=== PATIENT | male | born 1945 | race Caucasian/White ===

== ENCOUNTER 2017-12-01 13:04 | Observation (INO) | payer OTHER ==
--- NOTE | 2017-12-01 13:30 | EDPHY ---
H & P Time Seen by Provider: 12/01/17 13:29 HPI/ROS: CHIEF COMPLAINT: Dizziness and low blood pressure HISTORY OF PRESENT ILLNESS: Patient 1st had the symptoms 5 years ago with syncope and near syncope and had an echocardiogram then but none since. He was seen in cardiology clinic on Saturday and started on Midodrine and this is day 3. He is symptoms of lightheaded and dizziness or getting worse with blood pressure 66/49 yesterday, and then after walking the dog 58/41 and 69/47. He feels like symptoms are worse and he definitely worse with standing. Not associated with headache or chest pain or shortness of breath. Symptoms worsening over the past week. 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 REVIEW OF SYSTEMS: Eye: no change in vision ENT: no sore throat Cardiac: HPI Pulmonary: no cough or SOB Abdomen: no vomiting, diarrhea, abdominal pain Musculoskeletal: no back pain Skin: no rash Neuro: no headache Constitutional: no fever : no urinary symptoms A comprehensive 10 point review of systems is otherwise negative aside from elements mentioned in the history of present illness. PAST MEDICAL HISTORY: Appendectomy and testicular cancer Social history: Here with his of 20 years, denies alcohol or tobacco. General Appearance: Alert and conversant, cooperative. Eyes: No scleral icterus. ENT, Mouth: Normal mucous membranes. Respiratory: Normal respiratory effort, breath sounds equal, lungs are clear to auscultation. Cardiovascular: Regular rate and rhythm. 1 of 6 systolic murmur. Gastrointestinal: Abdomen is soft and non tender. Neurological: Alert, face symmetric, normal motor and sensory in extremities. Skin: Warm and dry, no rashes. Musculoskeletal: No peripheral edema. Psychiatric: Not agitated. Emergency Department course/MDM: EKG personally interpreted shows sinus rhythm with PVC and first-degree AV block , late anterior RS transition. Troponin negative. CBC and chemistry sent. Consultation with [facility]; discussed with Funmilayo at 1357, will see patient today in the hospital in consultation. 1400: Discussed Cardiology recommendation with patient and his . Admission to hospitalist service, cardiology consultation. Reason for admission is disabling symptoms with severe hypotension when he is standing or walking. Smoking Status: Never smoked Constitutional: Initial Vital Signs Temperature (C) 36.5 C 12/01/17 13:24 Heart Rate 67 12/01/17 13:24 Respiratory Rate 16 12/01/17 13:24 Blood Pressure 110/64 12/01/17 13:24 O2 Sat (%) 96 12/01/17 13:24 O2 Delivery Mode Room Air Allergies/Adverse Reactions: No Known Allergies Allergy (Verified 12/01/17 13:23) Home Medications: Medication Instructions Recorded Ondansetron Odt [Zofran Odt] 4 mg PO Q4PRN PRN #20 tab 05/20/14 Midodrine HCl 12/01/17 Medical Decision Making - Diagnostics EKG Interpretation: 12-lead EKG interpreted by me; official reading is in trace master. My interpretation is sinus rhythm rate 56 with PVC first-degree AV block and late anterior RS transition. Differential Diagnosis: Differential diagnosis considered for near syncope including but not limited to POTS, orthostatic hypotension, metabolic derangement, vasovagal syncope, arrhythmia, dehydration, and blood loss. Consult/Admit Bed Type: [facility] 1400 - Data Points Laboratory Results: Laboratory Results 12/01/17 13:32 12/01/17 13:32 12/01/17 12/01/17 12/01/17 13:35 13:32 13:32 WBC 5.18 10^3/uL 10^3/uL (3.80-9.50) RBC 4.09 10^6/uL L 10^6/uL (4.40-6.38) Hgb 13.4 g/dL L g/dL (13.7-17.5) Hct 40.3 % % (40.0-51.0) MCV 98.5 fL fL (81.5-99.8) MCH 32.8 pg pg (27.9-34.1) MCHC 33.3 g/dL g/dL (32.4-36.7) RDW 12.4 % % (11.5-15.2) Plt Count 181 10^3/uL 10^3/uL (150-400) MPV 11.0 fL fL (8.7-11.7) Neut % (Auto) 67.4 % % (39.3-74.2) Lymph % (Auto) 21.4 % % (15.0-45.0) [place] % (Auto) 8.1 % % (4.5-13.0) Eos % (Auto) 1.9 % % (0.6-7.6) Baso % (Auto) 1.0 % % (0.3-1.7) Nucleat RBC Rel Count 0.0 % % (0.0-0.2) Absolute Neuts (auto) 3.49 10^3/uL 10^3/uL (1.70-6.50) Absolute Lymphs (auto) 1.11 10^3/uL 10^3/uL (1.00-3.00) Absolute Monos (auto) 0.42 10^3/uL 10^3/uL (0.30-0.80) Absolute Eos (auto) 0.10 10^3/uL 10^3/uL (0.03-0.40) Absolute Basos (auto) 0.05 10^3/uL 10^3/uL (0.02-0.10) Absolute Nucleated RBC 0.00 10^3/uL 10^3/uL (0-0.01) Immature Gran % 0.2 % % (0.0-1.1) Immature Gran # 0.01 10^3/uL 10^3/uL (0.00-0.10) Sodium 135 mEq/L mEq/L (135-145) Potassium 4.6 mEq/L mEq/L (3.3-5.0) Chloride 100 mEq/L mEq/L (97-110) Carbon Dioxide 28 mEq/l mEq/l (22-31) Anion Gap 7 mEq/L L mEq/L (8-16) BUN 18 mg/dL mg/dL (7-23) Creatinine 0.9 mg/dL mg/dL (0.7-1.3) Estimated GFR > 60 Glucose 80 mg/dL mg/dL (70-100) Calcium 9.1 mg/dL mg/dL (8.5-10.4) POC Troponin I 0.00 ng/mL ng/mL (0.00-0.08) Medications Given: Discontinued Medications Sodium Chloride (Ns) 1,000 mls @ 0 mls/hr IV EDNOW ONE; Wide Open PRN Reason: Protocol Stop: 12/01/17 13:58 Last Admin: 12/01/17 14:00 Dose: 1,000 mls Point of Care Test Results: Chemistry 12/01/17 13:35 POC Troponin I 0.00 ng/mL ng/mL (0.00-0.08) Departure - Departure Disposition: [facility] Inpatient Acute Clinical Impression: Near syncope, Orthostatic hypotension Condition: Good
--- NOTE | 2017-12-01 13:38 | CPEKG ---
Heart Rate: 56 RR Interval: 1071 P-R Interval: 232 QRSD Interval: 90 QT Interval: 452 QTC Interval: 437 P [place]: 56 QRS [place]: -1 T Wave [place]: 44 EKG Severity - ABNORMAL ECG - EKG Impression: SINUS RHYTHM EKG Impression: VENTRICULAR PREMATURE COMPLEX EKG Impression: INTERPOLATED VENTRICULAR PREMATURE COMPLEX EKG Impression: FIRST DEGREE AV BLOCK EKG Impression: CONSIDER ANTEROSEPTAL INFARCT Electronically Signed By: Justin Larsen 01-Dec-2017 13:52:57
[2017-12-01 13:55] LABS: PLATELET COUNT 181 10^3/uL (150-400)
[2017-12-01] MEDS ORDERED: NS 1,000 ML IV ONE (13:57)
[2017-12-01] MEDS ORDERED: ACETAMINOPHEN 325 MG TAB PO PRN (14:55)
--- NOTE | 2017-12-01 15:41 | ASMTCMCOM ---
CM Note CM Note Notes: Pt presented to the Emergency Department with dizziness and low blood pressure. History includes testicular cancer. Pt admitted for further observation and treatment. Pt is and lives with his spouse. Discharge needs remain unclear at this time. CM will continue to follow. Current Discharge Plan: To be determined Date Signed: 12/01/2017 03:40 PM Electronically Signed By:Lissette Ramos RN
--- NOTE | 2017-12-01 15:47 | GHP ---
[f rep st] HISTORY AND PHYSICAL DATE OF ADMISSION: 12/01/2017 CHIEF COMPLAINT: Orthostatic hypotension. HISTORY OF PRESENT ILLNESS: Mr. Marcelino is a 72-year-old healthy man who comes in with lightheadednes s. He said he has had issues with lightheadedness and orthostasis for at least 5-6 years. Over the past 6-8 months, his symptoms have been progressive to a point where he gets lightheaded and nearly p asses out any time he walks his dogs, walks up stairs, if he stands too quickly. Immediately when he gets these symptoms he stops, he puts his head between his knees and he can feel blood rushing back into his head and feels better. He has fallen, most recently a week ago he fell off a bridge into a [place] while walking his dog. He was in the cold water and eventually revived enough to crawl out of the [place] and make it home, at which time his blood pressure per their cuff was 58 systolic. He jeaneth es any weight changes. No fevers or chills. No headache. No vision, hearing, speech issues. No co ugh. No palpitations. No abdominal complaints. No urinary symptoms. He does have chronic constipa tion. No lower extremity swelling. He has occasional joint pains for which he takes diclofenac. REVIEW OF SYSTEMS: A 10-point review of systems was done and is negative except as stated in the HPI . PAST MEDICAL HISTORY: Orthostatic hypotension and some mild arthritis. SOCIAL HISTORY: He works as a real estate section 8 property manager. He is . He denies tobacco, alco hol, or recreational drug use. FAMILY HISTORY: Mother from a spindle cell cancer. He does not know his father. CURRENT MEDICATIONS: He was started on Midodrine on Saturday. He has not noted any improvement in his symptoms since then, although he is able to have an erection easier. He takes an occasional diclofe nac for joint pains. ALLERGIES: No known drug allergies. PHYSICAL EXAM: VITAL SIGNS: He has been afebrile. Heart rate 50, blood pressure 177/98, 96% on j carlos m air. GENERAL: He is a very pleasant 72-year-old man. He is in no distress. He is alert and orie nted. HEENT: Pupils equal. Extraocular movements intact. Mucous membranes moist. Oropharynx kirsty r. Cranial nerves intact. NECK: Supple. No adenopathy. No carotid bruits. HEART: Regular, slig htly bradycardic. No murmur. LUNGS: Clear bilaterally without wheeze, rhonchi, or rales. SPINE: Nontender to palpation. ABDOMEN: Soft. No masses. Normal bowel sounds. EXTREMITIES: No clubbing , cyanosis, or edema. No lymphadenopathy noted. Pulses intact distally. PSYCH: He has a normal mo od and affect. NEUROLOGICAL: He moves all 4 extremities equally. LABORATORY DATA: CBC is normal except for mild anemia with a hemoglobin of 13.4. Electrolytes and r enal function are normal. Calcium 9.1. Troponin is negative. Electrocardiogram personally reviewed and interpreted shows sinus rhythm with a PVC, first-degree AV block, poor R-wave progression. ASSESSMENT AND PLAN: A 72-year-old man presents with orthostatic hypotension primarily after exertio n and occasionally with standing. This has been progressive for several years and accelerated in the last several months. He has not yet obtained a firm diagnosis. Etiologies could include primary au tonomic failure versus paraneoplastic syndrome versus cardiac cause. PLAN: Consult Cardiology to rule out cardiac cause of his hypotension. Will monitor him on telemetr y overnight. Check an echocardiogram. Consider exercise stress test. We will defer to Cardiology e valuation. Will also need to evaluate for other neurologic causes. Will hold his Midodrine for now. Place BETHANY hose. Do a cortisol stim test in the a.m. Check vitamin B12. Advised him to start slee ping with his head elevated. Treatment management of primary autonomic failure is generally symptoma tic, treating with Midodrine, Florinef, stockings and keeping your head elevated when sleeping. We w ill start medications tomorrow morning after I do the cortisol stim test, including Midodrine and Hang rinef, place BETHANY hose, and advised him to sleep with his head elevated to avoid hypertension. Certai nly followup post hospitalization would include, if no cause is found, would include evaluation with an autonomic neurology specialist, Dr. Deysi Ayala in [place]. Anemia. This is mild with a normal MCV. We will check vitamin B12 and iron levels. He is up to bruna e on his colonoscopy. Further evaluation can be done on the outpatient setting with followup. /[id number]/MODL
[2017-12-02] MEDS ORDERED: COSYNTROPIN 0.25 MG/2 ML SYRINGE IVP ONE (06:00)
[2017-12-02] MEDS: MIDODRINE HCL 5 MG TAB PO SCH ×2 (08:22→14:47)
[2017-12-02] MEDS ORDERED: MULTIVITAMINS 1 EACH TAB PO SCH (09:00)
[2017-12-02] MEDS ORDERED: FLUDROCORTISONE ACETATE 0.1 MG TAB PO SCH (09:00)
--- NOTE | 2017-12-02 12:17 | ECHO ---
[email or web address] [address] [address] Main: [phone] Fax: Transthoracic Echocardiogram Name: NISSA MARTINEZ MR#: [id number] Study Date: 12/02/2017 Study Time: 07:56 AM Date of : 1945 Age: 72 year(s) Height: 182.9 cm (72 in.) Weight: 80.29 kg (177 lb.) BSA: 2.02 m2 Gender: Male Examination: Echo Indication: hypotension Image Quality: Adequate Contrast: Requested by: Deidra Bailey BP: 146 mmHg/84 mmHg Heart Rate: Rhythm: Indication: hypotension Procedure Staff Telecommunicator Supervisor: Kenzie Pedro [facility] Reading Physician: Yunier Weller MD Requesting Provider: Conclusions: Normal size left ventricle. Borderline concentric LV hypertrophy. Normal global systolic LV function. EF is 58 %. Normal diastolic LV function. Normal RV function. The left atirum is borderline dilated. The right atrium is mildly dilated. The pulmonary artery pressure is normal. Right ventricular systolic pressure measures 21mmHg. The IVC is normal sized. Measurements: Chambers Valvular Assessment AV/MV Valvular Assessment TV/PV Normal Normal Normal Name Value Range Name Value Range Name Value Range Ao Lesley (2D): 3.4 cm (1.4 cm-2.6 AV Vmax: 0.84 m/s (1 m/s-1.7 TR Vmax: 1.98 mm/s ( - ) cm) m/s) TR PGmax: 16 mmHg ( - ) IVSd (2D): 1.1 cm (0.6 cm-1.1 AV maxP mmHg ( - ) syst. PAP: 21 mmHg ( - ) cm) AV meanP mmHg ( - ) PV Vmax: 0.86 m/s (0.6 m/s-0.9 LVDd (2D): 5.0 cm (4.2 cm-5.9 LVOT Vmax: 0.73 m/s (0.7 m/s-1.1 m/s) cm) m/s) PV PGmax: 3 mmHg ( - ) LVDs (2D): 3.5 cm (2.1 cm-4 GILES (Vmax): 3.9 cm2 ( - ) cm) GILES (VTI): 3.1 cm ( - ) LVPWd (2D): 1.1 cm (0.6 cm-1 MV E Vmax: 0.53 m/s ( - ) cm) MV A Vmax: 0.44 m/s ( - ) LVOTd 2.4 cm 2.4 cm mm MV E/A: 1.20 ( - ) LVEF (BP): 58 % (>=55 %) MV PHT: 0.079 s ( - ) RVDd(2D): 4.3 cm (1.9 cm-3.8 cmmm) MVA (PHT): 2.8 s ( - ) Patient: NISSA MARTINEZ Study Date: 12/02/2017 Page 1 of 2 07:56 AM Continued Measurements: Chambers Valvular Assessment AV/MV Valvular Assessment TV/PV Name Value Name Value Name Value LADs: 3.8 cm MV DecTime: 236 m/s CVP (est.): 5 mmHg LADs Lon.9 cm MV E/E' Septal: 8.60 LA Area: 21.2 cm2 MV E/E' Lateral: 5.60 LA Volume: 68 ml LA Volume Index: 33.7 ml/m2 RA Area: 21.3 cm2 Additional Vessels Name Value Ao Ascendin.4 cm Findings: Left Ventricle: Normal size left ventricle. Borderline concentric LV hypertrophy. Normal global systolic LV function. EF is 58 %. No regional wall motion abnormality. Normal diastolic LV function. Right Ventricle: Normal size right ventricle. Normal RV function. Left Atrium: The left atirum is borderline dilated. Normal appearing atrial septum. Right Atrium: The right atrium is mildly dilated. Mitral Valve: The mitral valve is normal in appearance and function. No mitral stenosis is present. Trivial mitral valve regurgitation. Aortic Valve: The aortic valve is tri-leaflet. Trivial aortic valve regurgitation. No aortic valve stenosis is present. Tricuspid Valve: The tricuspid valve is normal in appearance and function. Mild tricuspid regurgitation is present. The pulmonary artery pressure is normal. Right ventricular systolic pressure measures 21mmHg. Pulmonic Valve: The pulmonic valve is normal in appearance and function. There is no pulmonic regurgitation seen. Trivial pulmonic valve regurgitation. Aorta: The aorta is normal. Normal size aortic root measuring 3.4 cm. Normal size ascending aorta measuring 3.4 cm. IVC: The IVC is normal sized. Pericardium: No pericardial effusion. No pleural effusion. (No Signature Object) Patient: NISSA MARTINEZ Study Date: 12/02/2017 Page 2 of 2 07:56 AM [id number]
[2017-12-02] MEDS ORDERED: REGADENOSON 0.4 MG/5 ML SYR IVP ONE (12:18)
--- NOTE | 2017-12-02 13:54 | CPR ---
[f rep st] NONINVASIVE CARDIAC PROCEDURE REPORT PROCEDURE: Exercise treadmill MPI study. SUPERVISING MAINTENANCE FITTER: Yunier Weller MD. INDICATION FOR PROCEDURE: Chest pain. Abnormal electrocardiogram. Evaluation for cardiac ischemia. PRE: After obtaining informed consent, the patient was placed on electrocardiogram. Initial EKG amalia wed sinus rhythm, normal axis. Q-wave noted in V1, with slow R-wave progression in precordial leads. Initial blood pressure of 108/70. Patient denies any chest pain, shortness of breath, or lighthead edness. STRESS: The patient was placed on exercise treadmill. He has been known to have orthostatic hypoten bart in the past, before starting treadmill, a repeated blood pressure was done within 3 minutes of s tanding, showing a significant drop of blood pressure to 70/40. He was asymptomatic and decided to p roceed with testing. The patient was started on treadmill following standard Yosef protocol with the following findings: 1. He exercise for 6 minutes 38 seconds. 2. 7.7 METS. 3. Patient obtained a heart rate of 105 beats per minute, which was 70% of maximum predicted heart r ate. 4. Patient had no chest pain or symptoms of ischemia while exercising. 5. Patient had no significant EKG changes suggesting of ischemia. 6. BP variation resting standing 70/40, peak 90/58. 7. Patient maintained an SpO2 greater than 90%. 8. Patient had occasional premature ventricular contraction and premature atrial contraction. 9. Testing was stopped due to patient's maximum effort. 10. The test was determined to be invalid for determination of ischemia due to the patient unable to reach 85% of maximum predicted heart rate. Due to this, test was converted to a Lexiscan injection. The patient was laid flat in the treadmill room while continuing on the EKG. LEXISCAN INJECTION: 1. The patient remained asymptomatic of symptoms suggesting of ischemia. After lying flat with stre ss testing, his blood pressure did come up to 102/62. No significant EKG changes. Patient was given Lexiscan slow IV push, followed by nuclear isotope. Patient post-injection did note to have a signi ficant drop of blood pressure down to 71/40. He did report some mild midsternal chest pressure post- injection. He was given caffeinated beverage and his heart rate remained in the 90s. Patient was gi holden caffeinated beverage, and within 5 minutes of and injection, his blood pressure did increase up t o 118/60. Heart rate 85. All symptoms subsided. IMPRESSION: A 72-year-old male admitted with ongoing chest pain, lightheadedness, and noted history of orthostatic hypotension. Noted significant change between supine and standing blood pressures. W as able to exercise for 6 minutes and 38 seconds, with no significant EKG changes or symptoms suggest ing of ischemia, but was unable to be obtained a heart rate of 85% MPHR. Test transitioned to Lexisc an injection in which patient did have a significant drop in blood pressure with injection, with mild chest pressure, which subsided within 5 minutes of injection with caffeinated beverage. The patient was noted to have occasional premature ventricular contractions, premature atrial contraction, but n o malignant arrhythmias or pauses noted. Currently, vital signs are stable. He is asymptomatic, and he is being taken down to Nuclear [facility] for post-stress imaging. Results went over with Dr Weller. /[id number]/MODL
--- NOTE | 2017-12-02 16:00 | ASMTDCNOTE ---
Case Management Discharge Discharge Order Complete? Answers: Yes Patient to Obtain Answers: Independently Medications Transportation Arranged Answers: Family/Friends Discharge Comments Notes: 12/02/2017 Case Management Note Pt to discharge independent with follow up as directed. Date Signed: 12/02/2017 04:00 PM Electronically Signed By:Alyse Koch RN
--- NOTE | 2017-12-02 16:01 | ASMTLACE ---
LACE Length of stay for Answers: 1 day current admission Acuity / Level of Answers: No Care: Did the patient have an inpatient admission? Comorbidities - select Answers: Any tumor (including all that apply lymphoma or leukemia) Other Notes: Hypotension # of Emergency department Answers: 1-2 visits in the last 6 months Score: 5 Date Signed: 12/02/2017 04:00 PM Electronically Signed By:Alyse Koch RN
--- NOTE | 2017-12-02 16:23 | ASDISCHSUM ---
Discharge Information Plan Status:Home with No Needs Medically Cleared to Leave:12/02/2017 Discharge Date:12/02/2017 CM D/C Disposition:Home, Routine, Self-Care ADT D/C Disposition:Home, Routine, Self-Care Projected Discharge Date:12/02/2017 Transportation at D/C: Discharge Delay Reason: Follow-Up Date:12/02/2017 Discharge Slot: Final Diagnosis: Placement Information Patient Contact Information Contact Name:SVEN Relationship: Address:[address] City:[place] Alternate Phone: State/Zip Code:[place] [address] Email: Financial Information Financial Class:HMO and PPO Plans Primary Plan Desc:[facility] PPO POS Primary Plan Number:[id number] Secondary Plan Desc: Secondary Plan Number: Assessment Information LACE LACE Length of stay for Answers: 1 day current admission Acuity / Level of Answers: No Care: Did the patient have an inpatient admission? Comorbidities - select Answers: Any tumor (including all that apply lymphoma or leukemia) Other Notes: Hypotension # of Emergency department Answers: 1-2 visits in the last 6 months Score: 5 Date Signed: 12/02/2017 04:00 PM Electronically Signed By:Alyse Koch RN [facility] CM Progress Note CM Note CM Note Notes: Pt presented to the Emergency Department with dizziness and low blood pressure. History includes testicular cancer. Pt admitted for further observation and treatment. Pt is and lives with his spouse. Discharge needs remain unclear at this time. CM will continue to follow. Current Discharge Plan: To be determined Date Signed: 12/01/2017 03:40 PM Electronically Signed By:Lissette Ramos RN Case Management Discharge Plan Note Case Management Discharge Discharge Order Complete? Answers: Yes Patient to Obtain Answers: Independently Medications Transportation Arranged Answers: Family/Friends Discharge Comments Notes: 12/02/2017 Case Management Note Pt to discharge independent with follow up as directed. Date Signed: 12/02/2017 04:00 PM Electronically Signed By:Alyse Koch RN Intervention Information
--- NOTE | 2017-12-02 16:25 | GDS ---
[f rep st] DISCHARGE SUMMARY DIAGNOSES: 1. Symptomatic orthostatic hypotension with blood pressure drops down to the 50 and 60 systolic rang e. 2. Near syncope. CONSULTATIONS: Dr. Yunier Weller, Cardiology. PROCEDURES: Echocardiogram: Normal EF. Exercise nuclear stress test: No ischemia. Normal EF. Telemetry monitoring okay. HOSPITAL COURSE: The patient is a 72-year-old man who comes in with symptomatic orthostatic hypotens ion. He noticed drops in his blood pressure with hot weather, exertion, and eating a large meal. Th is is been worsening over the past several months after nearly starting 4 years ago. He comes in for further evaluation and treatment and was placed on telemetry. The above procedures were done. He c ontinues to have symptoms and we will discharge him on midodrine. Other options, include trial of Fl orinef on top of the Midrin even if the midodrine is ineffective. I do recommend he follow up with a specialized neurologist in [place] of orthostatic hypotension named Dr. Deysi Ayala. If he has d ifficulty following up with her, he should follow up with a neurologist. CONDITION ON DISCHARGE: Good. DISCHARGE MEDICATIONS: Please see discharge medication form. FOLLOWUP: Followup will be with Dr. Weller, his primary care provider, Dr. Cason, and referral to Neurology per Dr. Cason locally or recommend a specialist in the area of [place]. /[id number]/MODL
[2017-12-02 16:43] VITALS: BP 117/67
--- NOTE | 2017-12-02 18:21 | GCON ---
[f rep st] CONSULTATION CARDIOLOGY CONSULTATION DATE OF CONSULTATION: 12/02/2017 REASON FOR CONSULTATION: Orthostatic hypotension. HISTORY OF PRESENT ILLNESS: The patient is a pleasant 72-year-old gentleman known to my practice who I had last seen on Wednesday, November 29, 2017, with complaints of increasing lightheadedness, hypotension, and near syncope that had become progressively worse over the previous 6 to 8 months. He presented to the emergency department on Friday, December 01, 2017, with complaints of lightheadedness and orthostas is. At his office visit with me on November 29, we had initiated midodrine 5 mg p.o. t.i.d., seconda ry to symptomatic hypotension in my office with blood pressure of 82/54. We had also made arrangements for him to undergo overnight oximetry, 2 week outpatient heart monitor, and discussed increased fluid and sodium intake. He did note that he had some higher blood pressure readings while at home on the midodrine; however, he has continued to still have episodes of near syncope with hypotension and bradycardia. He admits to exacerbating factors of heat, as well as change in position. He denies any palpitations or syncop e. He has no complaints of chest pain, chest pressure, shortness of breath, or dyspnea on exertion. No complaints of fevers, chills, sweats, nausea, vomiting, or diaphoresis. No complaints of abdomin al pain, back pain, flank pain. PAST MEDICAL HISTORY: Notable for orthostatic hypotension, fatigue, and history of some arthritis. MEDICATIONS: On admission, include midodrine 5 mg p.o. t.i.d. started Wednesday, November 29, 2017. No othe r medications. ALLERGIES: None. SOCIAL HISTORY: He is . He works as a real estate appraiser personal property. No alcohol, tobacco, or recreational drug use. PHYSICAL EXAMINATION: VITAL SIGNS: Blood pressure of 117/67, heart rate of 62 in sinus rhythm, resp iratory rate of 16, oxygen saturation 93% on room air, temperature 36.8. GENERAL: He is awake, aler t, oriented, appropriate, in no apparent distress. NECK: No evidence of JVP. EXTREMITIES: No evid ence of lower extremity edema. DATA: Complete 2D echocardiogram performed December 01, 2017, demonstrates normal left ventricular functi on with LVEF of 58%. Normal right ventricular function. Left atrium is borderline dilated. Right a trium is mildly dilated. Normal pulmonary pressure with RV systolic pressure of 21 mmHg. Normal asc ending aorta measuring 3.4 cm. No evidence of pericardial effusion. Exercise nuclear stress test: The patient was unable to achieve target heart rate on exercise. Peak heart rate obtained was 105 beats per minute representing 70% of maximum predicted heart rate. He d ropped his blood pressure with standing to 70/40. He did exercise for 6 minutes and 38 seconds on a standard Yosef protocol without symptoms or ECG changes. He was subsequently converted to [facility] nuclear stress test. Nuclear imaging demonstrates normal perfusion and function. White blood cell count 5.8, hemoglobin 13.4, hematocrit 40.3, platelet count 1. Sodium 135, potassium 4.6, chloride 100, bicarb 28, BUN 18, creatinine 0.9. Hemoglobin A1c 5.6. B12 590. A.M. cortisol 19.5. IMPRESSION: Orthostatic hypotension. The patient has undergone extensive workup, including pharmacologic nuclear stress test and complete 2D echocardiogram. There is no evidence of ischemia. Left ventricular function is normal. He was n ot able to achieve target heart rate and only able to achieve a heart rate of 105 beats per minute re presenting 70% of his maximum predicted heart rate. Test was terminated and changed to Lexiscan. Concern for possible underlying chronotropic incompetence or may just be a component of his autonomic dysfunction. RECOMMENDATIONS: 1. Patient complete 2 week outpatient [employer] heart monitor. 2. Continue midodrine 5 mg p.o. t.i.d. 3. Recommend compression stockings to the knee. 4. Recommend increased sodium intake. 5. Increased water intake. 6. Recommend patient be careful and deliberate with change in position. 7. Recommend patient avoid triggers of heat. He states that cold compress on his neck alleviates sy mptoms. 8. Patient is to be seen by an orthostatic hypotension Clinic at [facility]. 9. Patient is scheduled to follow up with me in the office next month. /[id number]/MODL
== END 2017-12-02 16:44 | disposition home or self-care (01) ==
LOC: F2W 15:03
PROVIDERS: ADMIT Internal Medicine; ATTEND Internal Medicine
DX: I51.7 Cardiomegaly (principal); I95.1 Orthostatic hypotension; R55 Syncope and collapse
CPT/HCPCS: 78452; 93005; 93017; 93306; A9500; G0378; 82607-90; 83520-90; 84484-PO; 86256-90; J0834; J2785

== ENCOUNTER → 2018-09-27 | Outpatient (CLI) | payer OTHER | LOC: FIMAGING 11:45 | PROVIDERS: ATTEND Orthopaedic Surgery | DX: M17.11 Unilateral primary osteoarthritis, right knee (principal); M11.261 Other chondrocalcinosis, right knee; M25.861 Other specified joint disorders, right knee; M25.461 Effusion, right knee ==

== ENCOUNTER 2018-10-15 06:48 | Observation (INO) | payer OTHER ==
--- NOTE | 2018-10-15 06:01 | PDHPUP ---
History & Physical Update H&P update statement: This history and physical update is based on an assessment of the patient which was completed after admission or registration (within 24 hours), but prior to the surgery/procedure. H&P update: H&P reviewed & patient examined, no change in patient's condition since H&P completed
[~2018-10-15 06:48] MED LIST: ROPIVACAINE 0.2% 80 MG, EPINEPHrine 0.2 MG, KETOROLAC TROMETHAMINE 30 MG in SYRINGE 0 ML IU ONE; TRANEXAMIC ACID 3,000 MG in NS (SYRINGE) 50 ML IRR ONE
[2018-10-15] MEDS ORDERED: DEXAMETHASONE 4 MG/ML VIAL IVP ONE (07:03)
[2018-10-15] MEDS ORDERED: ceFAZolin 2 GM/DEXTROSE 100 ML IV ONE (07:03)
[2018-10-15] MEDS ORDERED: FAMOTIDINE 20 MG TAB PO ONE (07:03)
[2018-10-15] MEDS ORDERED: ACETAMINOPHEN 325 MG TAB PO ONE (07:03)
[2018-10-15] MEDS ORDERED: LIDOCAINE 1% 2 ML INJ ID PRN (07:04)
[2018-10-15] MEDS ORDERED: LR 1,000 ML IV ONE (07:04)
[2018-10-15] MEDS ORDERED: LIDOCAINE 1% 2 ML INJ ONE (07:09)
[2018-10-15] MEDS ORDERED: TRANEXAMIC ACID 3,000 MG/50 ML BAG IRR ONE (07:20)
[2018-10-15] MEDS ORDERED: VANCOMYCIN 1 GM VIAL ONE (07:20)
[2018-10-15] MEDS ORDERED: ONDANSETRON 4 MG/2 ML VIAL ONE (07:37)
[2018-10-15] MEDS ORDERED: LIDOCAINE 2% 100 MG/5 ML SYR ONE (07:37)
[2018-10-15] MEDS ORDERED: ROPIVACAINE HCL 150 MG/30 ML INJ ONE (07:37)
[2018-10-15] MEDS ORDERED: fentaNYL 100 MCG/2 ML INJ ONE (07:37)
[2018-10-15] MEDS ORDERED: PROPOFOL/EMULSION 500 MG/50 ML BOTTLE IV ONE (07:38)
[2018-10-15] MEDS ORDERED: MIDAZOLAM 2 MG/2 ML VIAL ONE (09:05)
[2018-10-15] MEDS ORDERED: MIDAZOLAM 2 MG/2 ML VIAL IVP ONE (09:05)
--- NOTE | 2018-10-15 09:05 | PDANEPAE ---
ANE History of Present Illness right knee DJD, here for R partial knee ANE Past Medical History - Pulmonary History Hx COPD: No Hx Asthma/Reactive Airway Disease: No Hx Recent Upper Respiratory Infection: No Hx Oxygen in Use at Home: No Hx Sleep Apnea: No Sleep Apnea Screening Result - Last Documented: Negative - Neurologic History Hx Cerebrovascular Accident: No Hx Seizures: No Hx Dementia: No Neurologic History Comment: DYSAUTONOMIA ORTHOSTATIC HYPOTENSION SYNDROME - SEEN BY DR CHACHO OCAMPO - Endocrine History Hx Diabetes: No - Renal History Hx Renal Disorders: No - Liver History Hx Hepatic Disorders: No - Neurological & Psychiatric Hx Hx Neurological and Psychiatric Disorders: No - Cancer History Hx Cancer: Yes Cancer History Comment: TESTICULAR - Congenital Disorder History Hx Congenital Disorders: No - GI History Hx Gastrointestinal Disorders: No - Other Health History Other Health History: NEG - Chronic Pain History Chronic Pain: Yes (ERYN KNEES) - Surgical History Prior Surgeries: TESTICULAR CANCER. TONSILLECTOMY. APPENDECTOMY ANE Review of Systems Review of Systems: - Exercise capacity METS (RN): 5 METS ANE Patient History - Allergies Allergies/Adverse Reactions: midodrine Allergy (Verified 10/15/18 07:16) Rash - Home Medications Home Medications: NK [No Known Home Meds] 10/03/18 [Last Taken Unknown] - NPO status NPO Since - Liquids (Date): 10/15/18 NPO Since - Liquids (Time): 01:00 NPO Since - Solids (Date): 10/14/18 NPO Since - Solids (Time): 18:00 - Smoking Hx Smoking Status: Never smoked ANE Labs/Vital Signs - Vital Signs Blood Pressure: 164/98 Heart Rate: 61 Respiratory Rate: 10 O2 Sat (%): 95 Height: 180.34 cm Weight: 76.204 kg ANE Physical Exam - Airway Neck exam: FROM Mallampati Score: Class 1 Mouth exam: normal dental/mouth exam - Pulmonary Pulmonary: no respiratory distress, no rales or rhonchi - Cardiovascular Cardiovascular: regular rate and rhythym, no murmur, rub, or gallop - ASA Status ASA Status: II ANE Anesthesia Plan Anesthesia Plan: GA with mask, spinal Regional Anesthesia: single shot NB Total IV Anesthesia: Yes
[2018-10-15] MEDS ORDERED: BUPIVACAINE 0.5% 30 ML SDV ONE (09:08)
[2018-10-15] MEDS ORDERED: BUPIVACAINE 0.25% 30 ML SDV ONE (09:08)
[2018-10-15] MEDS ORDERED: POLYETHYLENE GLYCOL 3350 17 GM PKT PO PRN (09:42)
[2018-10-15] MEDS ORDERED: BISACODYL 10 MG SUPP PR PRN (09:42)
[2018-10-15] MEDS ORDERED: oxyCODONE IR 5 MG TAB PO PRN (09:42)
[2018-10-15] MEDS ORDERED: MAGNESIUM HYDROXIDE 30 ML UDCUP PO PRN (09:42)
[2018-10-15] MEDS ORDERED: ONDANSETRON DISINTEGRATING 4 MG TAB PO PRN (09:42)
[2018-10-15] MEDS ORDERED: LACTULOSE 20 GM/30 ML UDCUP PO PRN (09:42)
[2018-10-15] MEDS ORDERED: PROMETHAZINE HCL 25 MG/ML INJ IVP PRN (09:42)
[2018-10-15] MEDS ORDERED: DIPHENOXYLATE/ATROPINE LOMOTIL 1 TAB PO PRN (09:42)
[2018-10-15] MEDS ORDERED: diphenhydrAMINE 25 MG CAP PO PRN (09:42)
[2018-10-15] MEDS ORDERED: TEMAZEPAM 15 MG CAP PO PRN (09:42)
[2018-10-15] MEDS ORDERED: METOCLOPRAMIDE 10 MG/2 ML VIAL IVP PRN (09:42)
[2018-10-15] MEDS ORDERED: PROMETHAZINE HCL 25 MG SUPPR PR PRN (09:42)
[2018-10-15] MEDS ORDERED: CYCLOBENZAPRINE 10 MG TAB PO PRN (09:42)
[2018-10-15] MEDS ORDERED: ONDANSETRON 4 MG/2 ML VIAL IVP PRN (09:42)
[2018-10-15] MEDS ORDERED: LR 1,000 ML IV SCH (10:00)
[2018-10-15] MEDS ORDERED: PROPOFOL 200 MG/20 ML VIAL ONE (10:12)
[2018-10-15] MEDS ORDERED: DIAZEPAM 10 MG/2 ML SYR IVP PRN (10:35)
[2018-10-15] MEDS ORDERED: HYDROmorphONE/DILAUDID 1 MG/ML INJ IVP PRN (10:35)
[2018-10-15] MEDS ORDERED: MEPERIDINE 25 MG/0.5 ML AMP IVP PRN (10:35)
[2018-10-15] MEDS ORDERED: NALOXONE HCL 0.4 MG/ML INJ IVP PRN (10:35)
--- NOTE | 2018-10-15 10:44 | POSTOPPROG ---
Post Op Note Date of Operation: 10/15/18 Surgeon: Reina Guerra Pit Supervisor: Autumn Olivier PAC Anesthesiologist: Dr. Fadia Garrett Anesthesia: Spinal, Other (Specify) (adductor canal block) Pre-op Diagnosis: right OA of medial knee Post-op Diagnosis: same Indication: right medial knee pain Procedure: right medial PKA Findings: severe OA of right medial knee Inf/Abcess present in the surg proc area at time of surgery?: No EBL: 50-100
--- NOTE | 2018-10-15 10:54 | POSTANESTH ---
Post Anesthetic Evaluation Cardiovascular Status: Normal, Stable Respiratory Status: Normal, Stable Level of Consciousness/Mental Status: Can Participate in Eval, Mildly Sleepy, Arousable Pain Control: Adequate, Prn Tx Ordered Nausea/Vomiting Control: Adequate, Prn Tx Ordered Complications Possibly Related to Anesthesia: None Noted
--- NOTE | 2018-10-15 14:15 | SOAPPROG ---
SOAP Progress Note Assessment/Plan: Assessment: s/p right knee medial compartment resurfacing, KENNETH assist - procedure earlier today with Dr. Guerra Doing well Plan: Begin d/c planning likely home tomorrow, will have support from his and children Continue VTE ppx- aspirin 81 mg BID x 4 weeks, BETHANY hose x 2 weeks, SCDs in hospital Continue oral pain medication - oxycodone, Tylenol, Celebrex Continue PT efforts WBAT, ROM as tolerated but limit flexion to 90 degrees until 5-7 days post-op. Follow up with Autumn Olivier PA-C, on 11/06/18 at 10:00 am Subjective: Patient states he is doing well, right knee pain is minimal at this time secondary to the spinal anesthesia and nerve block. He is planning on going home tomorrow and will have the support of his . He denies SOB, CP, fever, chills. Objective: Vital Signs Temp Pulse Resp BP Pulse Ox 36.6 C 86 17 148/80 H 93 10/15/18 14:11 10/15/18 14:11 10/15/18 14:11 10/15/18 14:11 10/15/18 14:11 10/14/18 10/15/18 10/16/18 05:59 05:59 05:59 Intake Total 1050 Output Total 680 Balance 370 Patient resting comfortably in bed, no acute distress. His and children are present in the room. RLE: Knee wound dressings clean, dry and intact. Lower leg compartments are soft and nontender. Negative Homans sign bilaterally. Thigh high BETHANY hose and SCDs are in place. Patient can actively DF and PF his right foot and great toe against resistance. Grossly NVI distally. ICD10 Worksheet Patient Problems: Problems Problem Status Onset Unilateral primary osteoarthritis, right knee Acute Near syncope Acute Orthostatic hypotension Acute
[2018-10-15] MEDS: ACETAMINOPHEN 325 MG TAB PO SCH ×2 (15:29→21:04)
[2018-10-15] MEDS: ceFAZolin 2 GM/DEXTROSE 100 ML IV SCH (17:14)
[2018-10-15] MEDS: ASPIRIN 81 MG CHEWABLE TAB PO SCH (21:04)
[2018-10-15] MEDS: SENNOSIDES/DOCUSATE SODIUM TAB PO SCH (21:04)
[2018-10-15] MEDS: FAMOTIDINE 20 MG TAB PO SCH (21:05)
[2018-10-16] MEDS: ceFAZolin 2 GM/DEXTROSE 100 ML IV SCH (00:32)
[2018-10-16] MEDS: ACETAMINOPHEN 325 MG TAB PO SCH ×2 (04:23→08:55)
--- NOTE | 2018-10-16 07:53 | SOAPPROG ---
SOAP Progress Note Assessment/Plan: Assessment: s/p right knee medial compartment resurfacing, KENNETH assist with Dr. Guerra - POD 1 Doing better than expected Anemia - expected initially post-op, asymptomatic, continue to monitor Hypertension - recommended he follow up with his PCP Plan: Continue d/c planning - likely home today, will have support from his and children Continue VTE ppx- aspirin 81 mg BID x 4 weeks, BETHANY hose x 2 weeks Continue oral pain medication - oxycodone, Tylenol, Celebrex Continue PT efforts - WBAT, ROM as tolerated but limit flexion to 90 degrees until 5-7 days post-op. He needs clearance from PT prior to d/c Follow up at [facility] with Autumn Olivier PA-C, on 11/06/18 at 10:00 am Subjective: Patient states he is doing well, pain is being well controlled with oral medication. He denies headaches, blurry vision, dizziness, nausea, vomiting, SOB , CP. He is a bit surprised at how high his BP has been, we recommended he follow up with his PCP. No other major complaints or concerns. Objective: Vital Signs Temp Pulse Resp BP Pulse Ox 36.7 C 60 18 168/94 H 95 10/16/18 07:26 10/16/18 07:26 10/16/18 07:26 10/16/18 07:26 10/16/18 07:26 Laboratory Results 10/16/18 04:20 10/15/18 10/16/18 10/17/18 05:59 05:59 05:59 Intake Total 2745 350 Output Total 1905 425 Balance 840 -75 Patient resting comfortably in bed, no acute distress. RLE: Knee wound dressings clean, dry and intact. Lower leg compartments are soft and nontender. Negative Homans sign bilaterally. Patient can actively DF and PF his right foot and great toe against resistance. Grossly NVI distally. ICD10 Worksheet Patient Problems: Problems Problem Status Onset Unilateral primary osteoarthritis, right knee Acute Near syncope Acute Orthostatic hypotension Acute
--- NOTE | 2018-10-16 07:56 | PDDCSUM ---
Discharge Summary Discharge Summary: ADMISSION DIAGNOSIS: Right knee severe medial compartment degenerative arthritis DISCHARGE DIAGNOSIS: Right knee severe medial compartment degenerative arthritis OPERATION PERFORMED: October 15, 2018, Right knee medial compartment resurfacing, Kavin robot assisted POSTOPERATIVE COMPLICATIONS: None CONDITION ON DISCHARGE: Improved HPI: The patient is a 73 year old male who has end-stage arthritis of his right knee medial compartment. Clinical and radiographic features are consistent with this. Patient has failed attempts at conservative management, therefore, recommended operative right knee medial compartment resurfacing with robotic assistance. DESCRIPTION OF HOSPITAL COURSE: The patient was admitted to the hospital on the morning of surgery and underwent a right knee medial compartment resurfacing, Kavin robot assisted. Postoperatively, patient was treated with multimodal DVT prophylaxis, including aspirin 81 mg BID, SCDs and BETHANY hose. Patient was seen by PT and made good progress with ambulation and stairs. On the first post- operative day the patients H&H was 13.2/39.2. Patient was also having high blood pressure and it was recommended that he follow up with his PCP within the next couple weeks for further evaluation. Patient was able to void spontaneously. At the time of discharge, patient was afebrile, wound was clean and dry. Patient is walking with a walker. DISPOSITION: The patient is discharged home with the support of his and children and will have outpatient PT in the next 1-2 weeks. Patient may progress to full weightbearing on the right lower extremity as tolerated. BETHANY stockings for 2 weeks during the day time. Aspirin 81 mg BID for 4 weeks. Patient has prescriptions for Celebrex, oxycodone for pain control. The patient will be seen by Dr. Blevins office in approximately 3 weeks. If there are any problems, patient is to call Dr. Blevins office.
[2018-10-16] MEDS: SENNOSIDES/DOCUSATE SODIUM TAB PO SCH (08:55)
[2018-10-16] MEDS: FAMOTIDINE 20 MG TAB PO SCH (08:55)
[2018-10-16] MEDS: ASPIRIN 81 MG CHEWABLE TAB PO SCH (08:55)
[2018-10-16 08:59] VITALS: BP 104/70
--- NOTE | 2018-10-16 09:53 | ASMTLACE ---
LACE Length of stay for Answers: 1 day current admission Acuity / Level of Answers: No Care: Did the patient have an inpatient admission? Comorbidities - select Answers: Any tumor (including all that apply lymphoma or leukemia) Opioid dependence / Chronic pain # of Emergency department Answers: 0 visits in the last 6 months Score: 7 Date Signed: 10/16/2018 09:52 AM Electronically Signed By:EMPERATRIZ Solis
--- NOTE | 2018-10-18 12:51 | GOP ---
[f rep st] OPERATIVE REPORT DATE OF OPERATION: 10/15/2018 SURGEON: Vic Guerra MD [facility] DIRECTOR: Susanna Olivier P.A.-C. ANESTHESIA: Spinal. PREOPERATIVE DIAGNOSIS: Right knee osteoarthritis. POSTOPERATIVE DIAGNOSIS: Right knee osteoarthritis. PROCEDURE PERFORMED: Right medial compartment partial knee replacement with computer navigation and robotic assist. FINDINGS: ESTIMATED BLOOD LOSS: 30 cc. INDICATIONS: This is a 73 year old male with progressive pain of the right knee unresponsive to conservative care. Risks and benefits of surgical intervention were explained in detail. DESCRIPTION OF PROCEDURE: The patient was brought to the operating room and placed on the table in supine position. Spinal anesthesia was induced without difficulty. A pneumatic tourniquet was applied about the right proximal thigh and the leg was prepped and draped in sterile fashion. Attention was turned first to the distal aspect of the right femur. At 3 cm proximal to the lateral rise of the femur, 2 percutaneous half pins were placed for fixation of the femoral array. In a similar fashion, 2 pins were placed anterolateral on the tibia for fixation of the tibial array. External land marking and registration of the hip center was performed without difficulty. After exsanguination by elevation, the tourniquet was inflated to 250 mmHg. Incision was made from the tibial tuberosity to the superior pole of the patella. Dissection was carried out through the subcutaneous tissue to the deep fascia using Bovie electrocautery for hemostasis. Medial parapatellar arthrotomy was carried out to the superior pole of the patella. The medial collateral ligament was elevated and the infrapatellar fat pad was resected. Internal femoral and tibial registration was carried out without difficulty and the femoral and tibial checkpoints were placed and verified for accuracy. Attention was turned to the femur. The foot print for the size 5 femoral component was cut with the 6 mm bur using the [employer]ed robotic system and verified for accuracy against the CT based plan. The hole was cut for the femoral post. In a similar fashion, the 6 mm bur was used to cut the foot print for the size 5 tibial component using the KRISTIAN system and verified for accuracy against the CT based plan. Pathology: Severe medial compartment arthritis, right knee. Attention was turned to the posterior aspect of the knee and remnants of the medial meniscus were excised. The posterior capsule was injected with ropivacaine, epinephrine and Toradol. Trial reduction was carried out and there was excellent range of motion, alignment and stability using the size 5 femoral component and the size 5 tibial component, 5 x 8 mm polyethelene. All trials were then removed. The joint was thoroughly irrigated and carefully dried. One package of cement and 1 gram of vancomycin were mixed in the vacuum mixer and placed on the fixation surfaces of all components. The components were implanted and all excess cement was thoroughly removed. Implant placement was verified against the CT view plan and found to be excellent. The tourniquet was deflated and all bleeders were coagulated. The wound was thoroughly irrigated and closed using interrupted sutures of 2-0 Vicryl for the joint capsule. The subcu was closed with 3-0 Vicryl and the skin with 4-0 Monocryl. Dermabond and Steri-Strips were applied, followed by a compressive dressing. The patient was then moved from the operating room to the recovery room in good condition, having tolerated the procedure well. CASE CLASSIFICATION: Clean. /[id number]/MODL MTDD
== END 2018-10-16 12:10 | disposition home or self-care (01) ==
LOC: F3N 06:48
PROVIDERS: ADMIT Orthopaedic Surgery; ATTEND Orthopaedic Surgery
DX: M17.11 Unilateral primary osteoarthritis, right knee (principal); D62 Acute posthemorrhagic anemia; I10 Essential (primary) hypertension; Z85.47 Personal history of malignant neoplasm of testis
CPT/HCPCS: 27446; 73560; 97110; 97116; 97161; G0378; C1713; J0171; J0690; J1100; J1885; J2001; J2250; J2405; J2704; J2795; J3010; J3370